=== PATIENT | male | born 1990 | race African-American/Black ===

== ENCOUNTER 2021-10-05 09:48 | Emergency (ER) | payer SELFPAY ==
[2021-10-05 10:11] VITALS: BP 151/76; PULSE 93; RESP 16; TEMP 36.4; O2SAT 99
--- NOTE | 2021-10-05 12:36 | ED.GENADULT ---
HPI - General Adult General Chief complaint: Dental/Oral Stated complaint: Lower Tooth Abcess Time Seen by Provider: 10/05/21 11:55 Source: patient Mode of arrival: ambulatory Limitations: no limitations History of Present Illness HPI narrative: 31-year-old male presenting to the emergency department for evaluation of worsening left lower facial pain and swelling. Patient states that he did have a fractured tooth in the beginning of May but has not yet sought follow-up with a dentist to have this repaired or extracted. Patient states he began having some dental pain yesterday and was started on Augmentin. Patient states he has had 3 doses of this. Patient states this morning he did have onset of some left-sided lower facial swelling and he wanted to be evaluated. Patient states he does suspect that it is draining spontaneously. Related Data Allergies Allergy/AdvReac Type Severity Reaction Status Date / Time No Known Allergies Allergy Verified 10/05/21 11:11 Review of Systems Review of Systems: CONSTITUTIONAL: Denies fever, chills, or sweats. EYES: Denies visual changes, redness, or discharge. ENT: No trismus. See HPI CARDIOVASCULAR: Denies chest pain, palpitations, or edema. RESPIRATORY: Denies cough or dyspnea. GASTROINTESTINAL: Denies abdominal pain, nausea, vomiting, or diarrhea. GENITOURINARY: Denies dysuria or hematuria. SKIN: Denies rash or itching. MUSCULOSKELETAL: Denies back pain, joint pain, or myalgia. All systems reviewed & are unremarkable except as noted in HPI and below Exam Narrative: APPEARANCE: Well appearing, no pain, no distress, well-nourished. HEAD: Left lower lateral mandibular swelling. No visualized dental abscess amenable to drainage. No trismus EYES: PERRLA/EOMI, conjunctivae clear. NOSE: Normal no drainage EARS:TMS clear with good light reflex. THROAT: Pharynx clear, no exudate. NECK: Supple. No adenopathy, no masses. RESPIRATORY: Airway patent, respirations nonlabored. Clear to auscultation bilaterally, no rales, rhonchi, wheezing. NEURO: Alert. Cranial nerves II through XII intact. Grossly intact SKIN: Warm, dry. Normal Color Course Course Emergency Course: Patient will be continued on his Augmentin. Patient has only had 3 doses of his antibiotic at this time. I suspect he just needs more time on the antibiotic and this is not a failure of outpatient therapy. Patient will also be provided medications for pain control. Patient was educated on reasons to return to the emergency department. All questions concerns were addressed. Patient was encouraged to have close follow-up with his dentist. Vital Signs Vital signs: Vital Signs Temperature 97.6 F 10/05/21 10:11 Pulse Rate 93 10/05/21 10:11 Respiratory Rate 16 10/05/21 10:11 Blood Pressure 151/76 H 10/05/21 10:11 Pulse Oximetry 99 10/05/21 10:11 Temperature 97.6 F 10/05/21 10:11 Pulse Rate 93 10/05/21 10:11 Respiratory Rate 16 10/05/21 10:11 Blood Pressure 151/76 H 10/05/21 10:11 Pulse Oximetry 99 10/05/21 10:11 Medical Decision Making Vital Signs Vital Signs: Vital Signs Temperature 97.6 F 10/05/21 10:11 Pulse Rate 93 10/05/21 10:11 Respiratory Rate 16 10/05/21 10:11 Blood Pressure 151/76 H 10/05/21 10:11 Pulse Oximetry 99 10/05/21 10:11 Temperature 97.6 F 10/05/21 10:11 Pulse Rate 93 10/05/21 10:11 Respiratory Rate 16 10/05/21 10:11 Blood Pressure 151/76 H 10/05/21 10:11 Pulse Oximetry 99 10/05/21 10:11 Discharge Plan Discharge Clinical Impression: Toothache, Left facial swelling Patient Disposition: Home, Self-Care Condition: Stable Instructions: Antibiotic Form, Dental Abscess (ED), Toothache (ED) Additional Instructions: Continue antibiotic as directed until completed. Ibuprofen scheduled for pain control. Merlin as needed for additional pain control. Have close follow-up with your dentist. If you have any worsening symptoms or if y
== END 2021-10-05 12:52 | disposition home or self-care (01) ==
PROVIDERS: Emergency Provider Emergency Medicine
DX: K08.89 Other specified disorders of teeth and supporting structures (principal); R22.0 Localized swelling, mass and lump, head
CPT/HCPCS: 99283